=== PATIENT | female | born 1935 | race Caucasian/White ===

== ENCOUNTER 2016-08-19 07:56 | Emergency (ER) | payer MEDICARE, OTHER ==
[2016-08-19] MEDS ORDERED: AMLODIPINE BESYLATE 10 MG TABLET PO ONE (08:10)
[2016-08-19 08:27] VITALS: BP 176/89
[2016-08-19] MEDS ORDERED: NORMAL SALINE 1000 ML 1,000 ML IV ONE (09:42)
[2016-08-19] MEDS ORDERED: ONDANSETRON HCL INJ/PF 4 MG/2 ML SDV IV ONE (09:42)
[2016-08-19] MEDS ORDERED: HYDROMORPHONE HCL INJ/PF 2 MG/ML AMPULE IV ONE (09:43)
--- NOTE | 2016-08-19 10:33 | ER Document Report ---
ED General - General Chief Complaint: Fall Injury Stated Complaint: FALL HIP PAIN TRAVEL OUTSIDE OF THE [place] IN LAST 30 DAYS: No - HPI Patient complains to provider of: right hip pain Notes: Patient coming in for evaluation of right hip pain. According to family members patient had a fall day prior to arrival while trying to get on her bedside commode. Since that time patient has had inability to ambulate and pain in the right hip. According to family members patient is a DNR/DNI. Patient also was on hospice and currently does have home health care aides. 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 - Related Data Allergies/Adverse Reactions: hydralazine Adverse Reaction (Intermediate, Verified 02/07/16 22:45) Tachycardia Past Medical History - Social History Smoking Status: Unknown if Ever Smoked Family History: CVA, DM - Past Medical History Cardiac Medical History: Reports: Hx Congestive Heart Failure, Hx Hypercholesterolemia, Hx Hypertension Pulmonary Medical History: Reports: Hx COPD, Hx Respiratory Failure Malignancy Medical History: Reports: Hx Colorectal Cancer - 2004 Musculoskeltal Medical History: Reports Hx Arthritis Psychiatric Medical History: Reports: Hx Dementia Past Surgical History: Reports: Hx Section, Hx Hysterectomy Review of Systems - Review of Systems Constitutional: No symptoms reported EENT: No symptoms reported Cardiovascular: No symptoms reported Respiratory: No symptoms reported Gastrointestinal: No symptoms reported Genitourinary: No symptoms reported Female Genitourinary: No symptoms reported Musculoskeletal: Other - Right hip pain Skin: No symptoms reported Hematologic/Lymphatic: No symptoms reported Neurological/Psychological: No symptoms reported Physical Exam - Vital signs Vitals: Temp Pulse Resp BP Pulse Ox 97.5 F 103 H 16 176/89 H 98 08/19/16 08:08 08/19/16 08:08 08/19/16 08:08 08/19/16 08:08 08/19/16 08:08 Interpretation: Hypertensive - General General appearance: Other - Frail cachectic - HEENT Head: Normocephalic, Atraumatic Eyes: Normal Pupils: PERRL - Respiratory Respiratory status: No respiratory distress Chest status: Nontender Breath sounds: Normal Chest palpation: Normal - Cardiovascular Rhythm: Regular Heart sounds: Normal auscultation Murmur: No - Abdominal Inspection: Normal Distension: No distension Bowel sounds: Normal Tenderness: Nontender Organomegaly: No organomegaly - Back Back: Normal, Nontender - Extremities General upper extremity: Normal inspection, Nontender, Normal ROM General lower extremity: Other - Patient has pain to palpation of the right hip patient has her legs bent 90 angle and will not extend her legs at the knee. Patient does have multiple scars of various stages of healing of bilateral lower extremities pulses are intact distally although there is some discoloration of the patient's toes distally as well. Family states that this is possibly a chronic condition capillary Refill is approximately 3-4 seconds - Neurological Neuro grossly intact: Yes Cognition: Normal Orientation: AAOx4 [place] Coma Scale Eye Opening: Spontaneous [place] Coma Scale Verbal: Oriented [place] Coma Scale Motor: Obeys Commands [place] Coma Scale Total: 15 Speech: Normal Motor strength normal: LUE, RUE, LLE, RLE Sensory: Normal - Psychological Associated symptoms: Normal affect, Normal mood - Skin Skin Temperature: Warm Skin Moisture: Dry Skin Color: Normal Course - Re-evaluation Re-evalutation: 08/19/16 10:32 Initial evaluation x-ray shows a right hip fracture. Long discussion with family members at bedside a possible course and prognosis offered admission to the hospital underneath her PCP for further orthopedic evaluation our family states that they did not want any surgery performed that they would like to take the patient home and make her comfortable. Discussed this with patient's PCP Dr. Stevens who agrees with this plan. Currently we are trying to reestablish our set up home health care hospice and home health care. - Vital Signs Vital signs: Temp Pulse Resp BP Pulse Ox 97.5 F 103 H 16 176/89 H 98 08/19/16 08:08 08/19/16 08:08 08/19/16 08:08 08/19/16 08:08 08/19/16 08:08 - Laboratory Result Diagrams: 08/19/16 09:35 Discharge - Discharge Clinical Impression: Closed right hip fracture Qualifiers: Encounter type: initial encounter Qualified Code(s): S72.001A - Fracture of unspecified part of neck of right femur, initial encounter for closed fracture Failure to thrive Qualifiers: Failure to thrive age range: in adult Qualified Code(s): R62.7 - Adult failure to thrive Condition: Poor Disposition: OTHER Instructions: Oral Narcotic Medication ([facility]) Additional Instructions: Your x-ray today shows a right hip fracture. We have established hospice care for you at this time. They will be at her residence around 3:[address] a fentanyl patch today. This will need to be changed in the next 3 days. We will give you a prescription for Vicodin for breakthrough pain. Please encourage fluids to stay hydrated to prevent constipation. He may also take the Faith lax to help prevent constipation. Prescriptions: Fentanyl [Duragesic 25 mcg/hr Transdermal Patch] 1 each TD Q3D #7 patch.td72 Hydrocodone Bit/Acetaminophen [Hydrocodon-Acetaminophen 5-325] 1 - 2 each PO Q6 #40 tablet Ondansetron [Zofran Odt 4 mg Tablet] 1 - 2 tab PO Q4H PRN #30 tab.rapdis PRN Reason: For Nausea/Vomiting Polyethylene Glycol 3350 [Miralax Powder 17 gm/Packet] 1 packet PO DAILY #1 pkg Referrals: JOSEPH STEVENS MD [Primary Care Provider] - Follow up as needed
[2016-08-19] MEDS ORDERED: ONDANSETRON HCL INJ/PF 4 MG/2 ML SDV IV PRN (11:09)
[2016-08-19] MEDS ORDERED: HYDROMORPHONE HCL INJ/PF 2 MG/ML AMPULE IV PRN (11:09)
[2016-08-19] MEDS ORDERED: FENTANYL 25 MCG/HR PATCH.TD72 TD ONE (11:30)
== END 2016-08-19 12:58 | disposition other institution (70) ==
LOC: ER 07:56
DX: S72.001A Fracture of unspecified part of neck of right femur, initial encounter for closed fracture (principal); R62.7 Adult failure to thrive; W18.11XA Fall from or off toilet without subsequent striking against object, initial encounter; I50.9 Heart failure, unspecified; E78.00 Pure hypercholesterolemia, unspecified; I11.0 Hypertensive heart disease with heart failure; F03.90 Unspecified dementia, unspecified severity, without behavioral disturbance, psychotic disturbance, mood disturbance, and anxiety; Z85.038 Personal history of other malignant neoplasm of large intestine; Z90.710 Acquired absence of both cervix and uterus
CPT/HCPCS: 99283; 96361; 96374; 96375; 73502; J1170; J3490; J2405; J7030